=== PATIENT | male | born 1940 | race Hispanic/Latino ===

== ENCOUNTER 2023-09-08 08:24 | Day surgery (SDC) | payer MEDICARE ==
[2023-09-08] VITALS (11 sets, daily range): BP systolic 101–168; BP diastolic 59–81; PULSE 54–81; RESP 15–18
[~2023-09-08] VITALS: Ht 167.6 cm; Wt 93.0 kg
[2023-09-08] MEDS: 0.9%NACL 1000ML 1,000 ML IV ONE (10:09)
[2023-09-08] MEDS ORDERED: ESCI-8 PO (10:21)
[2023-09-08] MEDS ORDERED: TRAZ-187 PO (10:21)
[2023-09-08] MEDS ORDERED: TAMS-1 PO (10:21)
[2023-09-08] MEDS ORDERED: LOSA100T59 PO (10:21)
[2023-09-08] MEDS ORDERED: BUSP10TA3 PO (10:21)
[2023-09-08] MEDS ORDERED: THEO400T3 PO (10:21)
[2023-09-08] MEDS ORDERED: PROPOFOL 10 MG/ML 20ML VIAL IV ONE (11:10)
== END 2023-09-08 12:53 | disposition home or self-care (01) ==
LOC: ENDO 08:24 → DAH 08:24 → ENDO 12:53
PROVIDERS: ATTEND Internal Medicine Gastroenterology
DX: D50.9 Iron deficiency anemia, unspecified (principal); K57.30 Diverticulosis of large intestine without perforation or abscess without bleeding; K31.A11 Gastric intestinal metaplasia without dysplasia, involving the antrum; K44.9 Diaphragmatic hernia without obstruction or gangrene; K31.89 Other diseases of stomach and duodenum; K29.50 Unspecified chronic gastritis without bleeding; K59.00 Constipation, unspecified; K21.9 Gastro-esophageal reflux disease without esophagitis; J45.909 Unspecified asthma, uncomplicated; F17.200 Nicotine dependence, unspecified, uncomplicated; I10 Essential (primary) hypertension; H91.90 Unspecified hearing loss, unspecified ear; J45.901 Unspecified asthma with (acute) exacerbation; Z86.010 Personal history of colon polyps; Z79.899 Other long term (current) drug therapy
CPT/HCPCS: 43239; 45378; J7030 ×2; J2704; A4620; A4215; A4223; A7002; A4222; A4221; A4663; A4606; J3490